=== PATIENT | male | born 1990 | race Hispanic/Latino ===

== ENCOUNTER 2020-04-03 14:28 | Emergency (ER) | payer OTHER ==
[~2020-04-03] VITALS: Ht 172.7 cm; Wt 97.5 kg
[~2020-04-03 14:28] MED LIST: IBUPROFEN400 MG PO; ROBITUSSIN COU118 ML PO
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
== END 2020-04-03 16:02 | disposition home or self-care (01) ==
LOC: ED 14:28
DX: S16.1XXA Strain of muscle, fascia and tendon at neck level, initial encounter (principal); S60.221A Contusion of right hand, initial encounter; V43.52XA Car driver injured in collision with other type car in traffic accident, initial encounter
CPT/HCPCS: 73130; 99283-25